=== PATIENT | female | born 1995 | race Caucasian/White ===

== ENCOUNTER → 2019-03-17 | Outpatient (CLI) | payer BC | LOC: RAD 09:59 | DX: Z34.02 Encounter for supervision of normal first pregnancy, second trimester (principal); Z36.9 Encounter for antenatal screening, unspecified; Z3A.18 18 weeks gestation of pregnancy ==

== ENCOUNTER → 2019-04-26 | Outpatient (CLI) | payer BC | LOC: RAD 09:03 | DX: Z34.02 Encounter for supervision of normal first pregnancy, second trimester (principal); Z36.9 Encounter for antenatal screening, unspecified; Z3A.00 Weeks of gestation of pregnancy not specified ==

== ENCOUNTER → 2020-12-07 | Outpatient (CLI) | payer BC, MEDICAID | LOC: RAD 15:22 | DX: S99.912A Unspecified injury of left ankle, initial encounter (principal) ==

== ENCOUNTER → 2022-01-07 | Outpatient (CLI) | payer BC, MEDICAID | LOC: RAD 07:00 | DX: Z34.92 Encounter for supervision of normal pregnancy, unspecified, second trimester (principal); Z3A.15 15 weeks gestation of pregnancy ==